=== PATIENT | male | born 1985 | race Caucasian/White ===

== ENCOUNTER 2025-02-08 10:52 | Emergency (ER) | payer BC ==
[2025-02-08 11:08] LABS: APPEARANCE,URINE SLIGHTLY CLOUDY (CLEAR); COLOR,URINE YELLOW (YELLOW); GLUCOSE,URINE NEGATIVE (NEGATIVE); KETONES,URINE NEGATIVE (NEGATIVE); LEUKOCYTE ESTERASE,URINE SMALL (NEGATIVE); NITRITE,URINE NEGATIVE (NEGATIVE); OCCULT BLOOD,URINE LARGE (NEGATIVE); PH,URINE 5.5 (4.5-8.0); PROTEIN,URINE >=300 mg/dL (NEGATIVE); UROBILINOGEN,URINE 0.2 EU/dL (0.2-1.0)
[2025-02-08 11:11] LABS: BILIRUBIN,URINE MODERATE (NEGATIVE)
[2025-02-08 11:20] LABS: BACTERIA,URINE MODERATE /HPF (NOT SEEN); RBC,URINE 75-100 /HPF (0-5); WBC CLUMPS,URINE OCCASIONAL /HPF (NOT SEEN); YEAST,URINE OCCASIONAL /HPF (NOT SEEN)
[2025-02-08] MEDS: cefTRIAXone 1 GM, Lidocaine 1% 2.1 ML IM STA (11:36)
[2025-02-08] MEDS: Fluconazole 100 MG Tab PO ONE (11:38)
== END 2025-02-08 11:52 | disposition home or self-care (01) ==
LOC: CC.ED 10:52
DX: N39.0 Urinary tract infection, site not specified (principal); B37.9 Candidiasis, unspecified; N41.9 Inflammatory disease of prostate, unspecified
CPT/HCPCS: 81001; 87086; 87088; 87186; 96372; 99284; A9270-GY; J0696; J2003